=== PATIENT | male | born 1940 | race Caucasian/White ===

== ENCOUNTER → 2023-12-10 | Outpatient (CLI) | payer OTHER | END | disposition home or self-care (01) | LOC: LAB 09:27 | PROVIDERS: ATTEND Internal Medicine | DX: R63.4 Abnormal weight loss (principal) | CPT/HCPCS: 36415; 84443 ==

== ENCOUNTER 2024-04-11 13:40 | Emergency (ER) | payer OTHER ==
[~2024-04-11] VITALS: Ht 157.5 cm; Wt 63.6 kg
[2024-04-11 13:46] VITALS: TEMP 97.9
[2024-04-11 13:55] VITALS: BP 197/76; RESP 17; O2SAT 94
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
--- NOTE | 2024-04-11 15:02 | DVH ---
CLINICAL INDICATION: pain TECHNIQUE: 5 radiographic views of the left ribs were obtained. Comparison: None FINDINGS/IMPRESSION: There is no evidence of acute fracture or dislocation. Dual-chamber pacemaker in place with pulse generator over the left chest. The visualized joint space is well maintained. The alignment is anatomical. There is no radiopaque foreign body. HS:Y
[2024-04-11 15:07] VITALS: PULSE 68
--- NOTE | 2024-04-12 07:12 | ECG ---
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
== END 2024-04-11 15:25 | disposition home or self-care (01) ==
LOC: ER 13:40
DX: S20.212A Contusion of left front wall of thorax, initial encounter (principal); I10 Essential (primary) hypertension; I25.10 Atherosclerotic heart disease of native coronary artery without angina pectoris; Z95.0 Presence of cardiac pacemaker; Z98.890 Other specified postprocedural states; V19.88XA Pedal cyclist (driver) (passenger) injured in other specified transport accidents, initial encounter; Y93.I9 Activity, other involving external motion; Y92.89 Other specified places as the place of occurrence of the external cause; Y99.8 Other external cause status
CPT/HCPCS: 71101; 93005

== ENCOUNTER 2024-09-03 11:41 | Inpatient (IN) | payer OTHER ==
[~2024-09-03] VITALS: Ht 157.5 cm; Wt 58.4 kg
--- NOTE | 2024-09-03 12:09 | ED.PDOC ---
HPI Comments This is a 84 year old male VITALY presents to the ED with chief complaint of syncope. EMS reports that the patient had been opening a gate at home when he was witnessed by neighbors to collapse to the ground, falling onto dirt. Patient relays that he had felt lightheaded prior to his syncopal episode. EMS states patient's BG was 347 on scene and had positive orthostatic vitals. Patient denies any chest pain, SOB, dizziness, headache, N/V, or fever. 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, Medications, Allergies Allergies: Coded Allergies: NO KNOWN ALLERGIES (Unverified , 09/03/24) Information Source: Patient, Emergency Med Personnel Mode of Arrival: EMS Severity: Moderate Timing: Hours Duration: Since onset Prehospital treatment: None Onset: At Rest Cardiac Risk Factors: HTN, Diabetes Associated Signs and Symptoms: Syncope Past Medical History PAST MEDICAL HISTORY: CAD, DM, HTN Surgical History: Hernia Repair, Pacemaker Family History Family History: Reviewed,noncontributory to illness Social History Smoker: Non-Smoker Alcohol: Denies ETOH Use Drugs: Denies Drug Use Lives In: Home Constitutional: denies: chills, diaphoresis, fatigue, fever, malaise, sweats, weakness, others EENTM: denies: blurred vision, double vision, ear bleeding, ear discharge, ear drainage, ear pain, ear ringing, eye pain, eye redness, hearing loss, mouth pain, mouth swelling, nasal discharge, nose bleeding, nose congestion, nose pain, photophobia, tearing, throat pain, throat swelling, voice changes, others Respiratory: denies: cough, hemoptysis, orthopnea, SOB at rest, shortness of breath, SOB with excertion, stridor, wheezing, others Cardiovascular: reports: lightheadedness, syncope; denies: chest pain, dizzy spells, diaphoresis, Dyspnea on exertion, edema, irregular heart beat, left arm pain, palpitations, PND, others Gastrointestinal: denies: abdomen distended, abdominal pain, blood streaked bowels, constipated, diarrhea, dysphagia, difficulty swallowing, hematemesis, melena, nausea, poor appetite, poor fluid intake, rectal bleeding, rectal pain, vomiting, others Genitourinary: denies: burning, dysuria, flank pain, frequency, hematuria, incontinence, penile discharge, penile sore, pain, testicle pain, testicle swelling, urgency, others Neurological: denies: dizziness, fainting, headache, left sided numbness, left sided weakness, numbness, paresthesia, pre-existing deficit, right sided numbness, right sided weakness, seizure, speech problems, tingling, tremors, weakness, others Musculoskeletal: denies: back pain, gout, joint pain, joint swelling, muscle pain, muscle stiffness, neck pain, others Integumetry: denies: bruises, change in color, change in hair/nails, dryness, laceration, lesions, lumps, rash, wounds, others Allergic/Immunocompromised: denies: Difficulty Healing, Frequent Infections, Hives, Itching, others Hematologic/Lymphatic: denies: anemia, blood clots, easy bleeding, easy bruising, swollen glands, others Endocrine: denies: excessive hunger, excessive sweating, excessive thirst, excessive urination, flushing, intolerance to cold, intolerance to heat, unexplained weight gain, unexplained weight loss, others Psychiatric: denies: anxiety, bipolar disorder, depression, hopeless, panic disorder, schizophrenia, sleepless, suicidal, others All Other Systems: Reviewed and Negative Physical Exam General Appearance: No Apparent Distress, Normal HEENT: Normal ENT Inspection, Pharynx Normal, TMs Normal Neck: Full Range of Motion, Non-Tender, Normal, Normal Inspection Respiratory: Chest Non-Tender, Lungs Clear, No Accessory Muscle Use, No Respiratory Distress, Normal Breath Sounds Cardiovascular: No Edema, No JVD, No Murmur, No Gallop, Normal Peripheral Pulses, Tachycardia Breast Exam: Deferred Gastrointestinal: No Organomegaly, Non Tender, No Pulsatile Mass, Normal Bowel Sounds, Soft Genitalia: Deferred Pelvic: Deferred Rectal: Deferred Extremities: No calf tenderness, Normal capillary refill, Normal inspection, Normal range of motion, Non-tender, No pedal edema Musculoskeletal : Apperance: Normal 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 Was a procedure done?: No CP Differential Dx Differential Diagnosis: Hypoxia, NH, PAC's Differential Diagnosis: CHF, HTN Essential, HTN Accelerated, Medical NonCompliance Differential Diagnosis: Gastritis, Myocardial Infarction, Pericarditis, Pneumonia X-Ray, Labs, Meds, VS Vital Signs Date Time Temp Pulse Resp B/P (MAP) Pulse Ox O2 Delivery O2 Flow Rate FiO2 09/03/24 14:00 48 16 110/40 (63) 95 09/03/24 12:50 71 16 93 Room Air* 0 21 09/03/24 12:00 98.0 75 16 127/43 (71) 92 98.0 09/03/24 11:54 99.0 75 20 111/60 (77) 98 99.0 09/03/24 11:46 79 Lab Test 09/03/24 13:28 09/03/24 12:17 Range/Units Troponin I High Sensitivity 3 L 3 L </=54 ng/L White Blood Count 6.7 4.4-10.8 10^3/uL Red Blood Count 4.12 L 4.5-5.90 10^6/uL Hemoglobin 13.9 13.5-17.5 g/dL Hematocrit 40.9 L 41.0-53.0 % Mean Corpuscular Volume 99.2 80.0-100.0 fL Mean Corpuscular Hemoglobin 33.8 H 28.0-32.0 pg Mean Corpuscular Hemoglobin Concent 34.1 32.0-36.0 g/dL Red Cell Distribution Width 13.3 11.8-14.3 % Platelet Count 146 140-450 10^3/uL Mean Platelet Volume 8.9 6.9-10.8 fL Neutrophils (%) (Auto) 68.3 37.0-80.0 % Lymphocytes (%) (Auto) 21.0 10.0-50.0 % Monocytes (%) (Auto) 7.3 0.0-12.0 % Eosinophils (%) (Auto) 2.8 0.0-7.0 % Basophils (%) (Auto) 0.6 0.0-2.0 % Neutrophils # (Auto) 4.6 1.6-8.6 10 ^3/uL Lymphocytes # (Auto) 1.4 0.4-5.4 10 ^3/uL Monocytes # (Auto) 0.5 0-1.3 10 ^3/uL Eosinophils # (Auto) 0.2 0-0.8 10 ^3/uL Basophils # (Auto) 0 0-0.2 10 ^3/uL Nucleated Red Blood Cells 0.0 % Sodium Level 139 136-145 mmol/L Potassium Level 5.3 H 3.5-5.1 mmol/L Chloride Level 105 98-107 mmol/L Carbon Dioxide Level 25 20-31 mmol/L Anion Gap 9 5-15 Blood Urea Nitrogen 22 9-23 mg/dL Creatinine 1.51 H 0.700-1.30 mg/dL Glomerular Filtration Rate Calc 45 >90 mL/min BUN/Creatinine Ratio 14.6 10.0-20.0 Serum Glucose 352 H 74-106 mg/dL Calcium Level 10.0 8.7-10.4 mg/dL B-Type Natriuretic Peptide 110.46 0-100 pg/mL [place] [address] Ph: [phone] DIAGNOSTIC IMAGING Diagnostic Imaging Report : [id number] Signed PATIENT: KANU MARTINEZ ACCT: [id number] UNIT: [id number] : 1940 LOC: ER ROOM / BED: / AGE / SEX: 84 / M ADM STATUS: REG ER SERVICE 1146 ORDERING PHYSICIAN: NII VANG MD PROCEDURE(s): HWOCT - HEAD WITHOUT CONTRAST REASON: syncope ORDER NUMBER(s): [id number], ACCESSION NUMBER(s): [id number] CT HEAD WITHOUT CONTRAST Indication: syncope EXAM DATE: 09/03/2024 12:01 PM COMPARISON: None TECHNIQUE: CT of the head without intravenous contrast. RADIATION DOSE: CTDIvol: 62.36 mGy, DLP: 979.11 mGy*cm FINDINGS: There is no intracranial hemorrhage. There is no extra-axial fluid, mass, mass effect or midline shift. The ventricles are midline and normal in size. Basilar cisterns are patent. Zvjc-rt-nkrrszhd periventricular and subcortical white matter chronic microvascular ischemic changes. Mild global cerebral volume loss. 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 Ethmoid, sphenoid sinus disease. Sclerosis of the mastoids. Imaged portion of the orbits are unremarkable. IMPRESSION: 1. No intracranial hemorrhage or mass effect. 2. Zcys-os-nlfpcskq chronic microvascular ischemic changes. 3. 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 4. Paranasal sinus disease ATED BY: CHRISTIANO TRACEY MD DICTATED DATE/TIME: 09/03/24 1232 SIGNED BY: CHRISTIANO TRACEY MD SIGNED DATE/TIME: 09/03/24 123 CC: [place] [address] Ph: [phone] DIAGNOSTIC IMAGING Diagnostic Imaging Report : [id number] Signed PATIENT: KANU MARTINEZ ACCT: [id number] UNIT: [id number] : 1940 LOC: ER ROOM / BED: / AGE / SEX: 84 / M ADM STATUS: REG ER SERVICE 1146 ORDERING PHYSICIAN: NII VANG MD PROCEDURE(s): CXRP - CHEST PORTABLE REASON: syncope ORDER NUMBER(s): [id number], ACCESSION NUMBER(s): [id number] CHEST RADIOGRAPH Indication: syncope Technique: Single frontal view of the chest was obtained COMPARISON: None FINDINGS: Left chest dual lead cardiac pacer device. The cardiac silhouette is enlarged. The lungs demonstrate bilateral patchy airspace opacities. The pulmonary vasculature is prominent. Interstitial airspace opacities which could represent sequela of pulmonary edema, atypical infection, chronic lung changes/disease. Small left pleural effusion.. There is no pneumothorax. Aortic atherosclerotic disease. IMPRESSION: 1. As above ATED BY: CHRISTIANO TRACEY MD DICTATED DATE/TIME: 09/03/24 1233 SIGNED BY: CHRISTIANO TRACEY MD SIGNED DATE/TIME: 09/03/24 1233 CC: Time of 1ST Reevaluation: 13:05 Reevaluation 1ST: Unchanged Patient Education/Counseling: Diagnosis, Treatment Family Education/Counseling: No Family Present Additional Information Previous visits reviewed: 04/11/24 for rib contusion The following tests were ordered, and results were reviewed by me: CBC, BMP, Troponin, UA, EKG, Chest XR, BNP, Head CT Additional Information was gathered from interviewing the following independent historians: EMS I reviewed and agreed with the following test results read by other providers: Chest XR, Head CT I discussed treatment and results with medical personnel and: patient Comprehensive systems review obtained and negative except for what is stated in the HPI. Departure 1 Departure Time of Disposition: 14:17 (Patient presented with syncope today and should be admitted. Data: 1. I ordered and reviewed the result of at least 3 labs including a CBC, BMP, and troponin. 2. I independently interpreted the following tests: EKG which shows a sinus arrhythmia and a chest x-ray which shows pulmonary vascular congestion and a CT head which shows benign brain.Risk:This patient has a high risk of morbidity due to further diagnostic testing or treatment and may suffer from an acute cardiac, neurologic, or infectious disorder. Rationale: Patient should be admitted to the hospital for further management.) Impression: Primary Impression: Syncope and collapse Disposition: ADMITTED INPATIENT Admit to: Med Surg Condition: Guarded Critical Care Note Critical Care Time?: Yes Critical care comment: Syncope Authorized and Performed by: Nii Vang MD Total critical care time: Approximately 38 minutes Due to a high probability of clinically significant, life threatening deterioration, the patient required my highest level of preparedness to intervene emergently and I personally spent this critical care time directly and personally managing the patient. This critical care time included obtaining a history; examining the patient; pulse oximetry; ordering and review of studies; arranging urgent treatment with development of a management plan; evaluation of patient's response to treatment; frequent reassessment; and, discussions with other providers. This critical care time was performed to assess and manage the high probability of imminent, life-threatening deterioration that could result in multi-organ failure. It was exclusive of separately billable procedures and treating other patients and teaching time. Please see my other sections and the rest of the note for further information on patient assessment and treatment. Stability Stability form required: No Heart Score Heart Score: Heart Score Response (Comments) Value History Highly Suspicious 2 EKG Repolarization Disturb 1 Age >65 2 Risk Factors >3 or Hx ASHD 2 Troponin Normal limit 0 Total 7 I personally scribed for NII VANG MD ([email or web address]) on 09/03/24 at 12:08. Electronically submitted by Lion Brar ([email or web address]). I personally scribed for NII VANG MD ([email or web address]) on 09/03/24 at 12:52. Electronically submitted by Lion Brar ([email or web address]). NII VANG MD Sep 03, 2024 12:08
--- NOTE | 2024-09-03 12:34 | DVH ---
CT HEAD WITHOUT CONTRAST Indication: syncope EXAM DATE: 09/03/2024 12:01 PM COMPARISON: None TECHNIQUE: CT of the head without intravenous contrast. RADIATION DOSE: CTDIvol: 62.36 mGy, DLP: 979.11 mGy*cm FINDINGS: There is no intracranial hemorrhage. There is no extra-axial fluid, mass, mass effect or midline shif t. The ventricles are midline and normal in size. Basilar cisterns are patent. Gzza-vi-ngrwmxvc periv entricular and subcortical white matter chronic microvascular ischemic changes. Mild global cerebral volume loss. 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 Ethmoid, sphenoid sinus disease. Sclerosis of the mastoids. Imaged portion of the orbits are unremar kable. IMPRESSION: 1. No intracranial hemorrhage or mass effect. 2. Hkbv-dz-avecjrcm chronic microvascular ischemic changes. 3. 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 4. Paranasal sinus disease
--- NOTE | 2024-09-03 12:35 | DVH ---
CHEST RADIOGRAPH Indication: syncope Technique: Single frontal view of the chest was obtained COMPARISON: None FINDINGS: Left chest dual lead cardiac pacer device. The cardiac silhouette is enlarged. The lungs demonstrate bilateral patchy airspace opacities. The pu lmonary vasculature is prominent. Interstitial airspace opacities which could represent sequela of pu lmonary edema, atypical infection, chronic lung changes/disease. Small left pleural effusion.. There is no pneumothorax. Aortic atherosclerotic disease. IMPRESSION: 1. As above
[2024-09-03 12:50] VITALS: PULSE 71; RESP 16; O2SAT 93
[2024-09-03 12:52] LABS: Basophils # (auto) 0 10 ^3/uL (0-0.2); Basophils % (auto) 0.6 % (0.0-2.0); Eosinophils # (auto) 0.2 10 ^3/uL (0-0.8); Eosinophils % (auto) 2.8 % (0.0-7.0); Hematocrit 40.9 % (41.0-53.0); Hemoglobin 13.9 g/dL (13.5-17.5); Lymphocytes # (auto) 1.4 10 ^3/uL (0.4-5.4); Mean Corpuscular Hemoglobin 33.8 pg (28.0-32.0); Mean Corpuscular Hgb Conc. 34.1 g/dL (32.0-36.0); Mean Corpuscular Volume 99.2 fL (80.0-100.0); Monocytes # (auto) 0.5 10 ^3/uL (0-1.3); Monocytes % (auto) 7.3 % (0.0-12.0); Neutrophils # (auto) 4.6 10 ^3/uL (1.6-8.6); Neutrophils % (auto) 68.3 % (37.0-80.0); Platelet Count (auto) 146 10^3/uL (140-450); Red Blood Cells 4.12 10^6/uL (4.5-5.90); Red Cell Distribution Width 13.3 % (11.8-14.3); White Blood Cell 6.7 10^3/uL (4.4-10.8)
[2024-09-03 13:07] LABS: Chloride 105 mmol/L (98-107); Sodium 139 mmol/L (136-145)
[2024-09-03 13:08] LABS: Anion Gap 9 (5-15); Carbon Dioxide 25 mmol/L (20-31)
[2024-09-03 13:11] LABS: Potassium 5.3 mmol/L (3.5-5.1)
[2024-09-03 13:14] LABS: BUN/Creatinine Ratio 14.6 (10.0-20.0); Blood Urea Nitrogen 22 mg/dL (9-23); Glucose 352 mg/dL (74-106)
[2024-09-03] MEDS ORDERED: ALBUTEROL SULF 2.5 MG/0.5ML(0.5%) NEB SOLN NEB PRN (15:00)
[2024-09-03] MEDS ORDERED: guaiFENesin 200 MG/10 ML UD PO PRN (15:00)
[2024-09-03] MEDS ORDERED: MORPHINE SULFATE INJ 2 MG/ml SYRG IV PRN (15:00)
[2024-09-03] MEDS ORDERED: NITROGLYCERIN 0.4 MG SL TAB SL PRN (15:00)
[2024-09-03] MEDS ORDERED: DEXTROSE (50%) 50ML SYRG IV PRN (15:00)
--- NOTE | 2024-09-03 15:00 | DVHHPRES ---
History of Present Illness Resident Creating Document: SHALONDA VALDES RESIDENT History of Present Illness Patient is 84-year-old male with past medical history of hypertension, diabetes mellitus type 2, benign prostate hyperplasia, dyslipidemia, presence of pacemaker who brought to the hospital with chief complaint of syncopal episode. As per patient he lose sudden consciousness, did not have any pre or post consciousness confusion, no prodromal symptoms, he usually has dizziness while sudden standing up. As per patient one of grandchildren was sick, few weeks ago he started having cough, which is not resolving. Mainly cough is nonproductive not associated fever, chills, shortness of breath, chest pain. Patient never had similar kind of symptoms where he passed out, mainly usually has lightheadedness. Apart from them patient denying any other symptoms, regular bowel and bladder. Past medical history: Hypertension, diabetes mellitus type 2, BPH, dy slipidemia, h Surgical history: Presence of pacemaker Allergy : None Personal history: Nonsmoker, no recreational drug use Family history: Unremarkable Home medication: Metformin 500 mg b.i.d., lisinopril 5 mg once daily, metoprolol 50 mg once daily, glimepiride1 mg p.o. daily, pioglitazone 30 mg p.o. daily, levothyroxine 50 mcg once daily, Januvia 100 mg once, ezetimibe 10 mg p.o. daily Review of Systems Constitutional: No: Fever, Chills, Sweats, Weakness, Malaise, Other Eyes: No: Pain, Vision change, Conjunctivae inflammation, Eyelid inflammation, Other, Redness ENT: No: Ear pain, Ear discharge, Nose pain, Nose discharge, Nose congestion, Mouth pain, Mouth swelling, Throat pain, Throat swelling, Other Respiratory: No: Cough, Dry, Shortness of breath, SOB with excertion, Wheezing, Hemoptysis, Pleuritic Pain, Sputum, Wheezing, Other Cardiovascular: No: Chest Pain, Palpitations, Orthopnea, Paroxysmal Noc. Dyspnea, Edema, Lt Headedness, Other Gastrointestinal: No: Nausea, Vomiting, Abdominal Pain, Diarrhea, Constipation, Melena, Hematochezia, Other Genitourinary: No Dysuria, No Frequency, No Incontinence, No Hematuria, No Retention, No Other Musculoskeletal: No: other, neck pain, shoulder pain, arm pain, back pain, hand pain, leg pain, foot pain Skin: No: Rash, Lesions, Jaundice, Bruising, Other Neurological: Other (Dizziness, syncopal episode) Allergies: Coded Allergies: NO KNOWN ALLERGIES (Unverified , 09/03/24) Medications Current Medications Medications Dose Ordered Sig/Es Route Start Time Stop Time Status Last Admin Dose Admin Nitroglycerin 0.4 mg Q5MINP PRN SL 09/03/24 15:00 UNV Morphine Sulfate 2 mg Q30M PRN IV 09/03/24 15:00 UNV Ceftriaxone Sodium 50 ml @ 100 mls/hr DAILY@09 IV 09/04/24 09:00 UNV Azithromycin 500 mg DAILY PO 09/04/24 10:00 UNV Guaifenesin 200 mg Q4HP PRN PO 09/03/24 15:00 UNV Albuterol 2.5 mg Q6HPRN PRN NEB 09/03/24 15:00 UNV Exam Vital Signs Vital Signs Date Time Temp Pulse Resp B/P (MAP) Pulse Ox O2 Delivery O2 Flow Rate FiO2 09/03/24 14:00 48 16 110/40 (63) 95 09/03/24 12:50 Room Air* 0 21 09/03/24 12:00 98.0 98.0 Exam General Appearance: Cooperative. Well developed. Well nourished. NAD Head Exam: Normal inspection Neck Exam: Normal inspection. Non-tender. Normal alignment Pulmonary/Respiratory: Chest non-tender. Clear bilateral breath sounds Cardiovascular/Chest: Regular rate and rhythm. No murmurs. No JVD. Peripheral Pulses: 2+ Radial (R). 2+ Radial (L). 2+ Pedal (R). 2+ Pedal (L) Abdominal Exam: Normal bowel sounds. Soft. Nontender. No hepatospenomegaly. No masses Ankle Exam: Negative ankle edema Lower extremities: Negative lower extremity edema Neuro/Mental Status: A&O x4. Coherent Thoughts/Psych: Normal thought pattern. Appropriate mood and affect. Good judgement and insight Appearance: In no acute distress Skin Exam: Normal inspection. Normal color. Warm. Dry Labs/Xrays Labs Test 09/03/24 13:28 09/03/24 12:17 Range/Units Troponin I High Sensitivity 3 L </=54 ng/L White Blood Count 6.7 4.4-10.8 10^3/uL Red Blood Count 4.12 L 4.5-5.90 10^6/uL Hemoglobin 13.9 13.5-17.5 g/dL Hematocrit 40.9 L 41.0-53.0 % Mean Corpuscular Volume 99.2 80.0-100.0 fL Mean Corpuscular Hemoglobin 33.8 H 28.0-32.0 pg Mean Corpuscular Hemoglobin Concent 34.1 32.0-36.0 g/dL Red Cell Distribution Width 13.3 11.8-14.3 % Platelet Count 146 140-450 10^3/uL Mean Platelet Volume 8.9 6.9-10.8 fL Neutrophils (%) (Auto) 68.3 37.0-80.0 % Lymphocytes (%) (Auto) 21.0 10.0-50.0 % Monocytes (%) (Auto) 7.3 0.0-12.0 % Eosinophils (%) (Auto) 2.8 0.0-7.0 % Basophils (%) (Auto) 0.6 0.0-2.0 % Neutrophils # (Auto) 4.6 1.6-8.6 10 ^3/uL Lymphocytes # (Auto) 1.4 0.4-5.4 10 ^3/uL Monocytes # (Auto) 0.5 0-1.3 10 ^3/uL Eosinophils # (Auto) 0.2 0-0.8 10 ^3/uL Basophils # (Auto) 0 0-0.2 10 ^3/uL Nucleated Red Blood Cells 0.0 % Sodium Level 139 136-145 mmol/L Potassium Level 5.3 H 3.5-5.1 mmol/L Chloride Level 105 98-107 mmol/L Carbon Dioxide Level 25 20-31 mmol/L Anion Gap 9 5-15 Blood Urea Nitrogen 22 9-23 mg/dL Creatinine 1.51 H 0.700-1.30 mg/dL Glomerular Filtration Rate Calc 45 >90 mL/min BUN/Creatinine Ratio 14.6 10.0-20.0 Serum Glucose 352 H 74-106 mg/dL Calcium Level 10.0 8.7-10.4 mg/dL B-Type Natriuretic Peptide 110.46 0-100 pg/mL Assessment/Plan Assessment/Plan Syncope ? Cardiogenic syncope, orthostatic hypotension, thyroid dysfunction, carotid artery stenosis Acute CHF diastolic versus systolic Small pleural effusion Pneumonia Gram-positive versus Gram-negative ? Post viral KIANA due to VMN, CKD, baseline CKD unknown Hypertension Hypothyroidism Presence of pacemaker Diabetes mellitus type 2 with hyperglycemia Dyslipidemia Plan/ recommendation: Head CT: No intracranial hemorrhage or mass effect. [id number] chronic microvascular ischemic changes. Chronic mastoiditis. Paranasal sinus disease Chest x-ray: Bilateral patchy airspace opacity. Pulmonary edema. Small pleural effusion IV antibiotic with ceftriaxone azithromycin Cardiology consultation Pending echocardiogram, TSH, respiratory culture IV Lasix 20 mg once daily, sodium zirconium for hyperkalemia Albuterol 2.5 mg q.6 p.r.n. Moderate insulin sliding scale For hypothyroidism resume levothyroxine, follow with TSH Pending urine studies including urine sodium, urine protein creatinine ratio, urinalysis Follow up with BMP and magnesium level in tomorrow a.m.. PUD prophylaxis with Protonix DVT prophylaxis with Lovenox Goals of care discussed greater than 22 minutes, DNR. Can done intubation. Plan discussed with Dr. Sidhu Plan discussed with: Patient, Other (RN) My Orders Orders - SHALONDA VALDES RESIDENT Procedure Category Date Status Time Admit ADMIT 09/03/24 Transmitted 14:51 Nitroglycerin PHA 09/03/24 Logged Sublingual (Ntrostat 15:00 Morphine Sulfate PHA 09/03/24 Logged Injection 15:00 Oxygen By Nasal RT 09/03/24 Transmitted Cannula 14:51 Stat Ekg For Chest ROBERTA 09/03/24 In Process Pain 14:51 Notify Md Of Changes ROBERTA 09/03/24 In Process From Base 14:51 Pest Control Specialist For ROBERTA 09/03/24 In Process 24 Hours 14:51 Emergency Dysrhythmia ROBERTA 09/03/24 In Process Protocol 14:51 Rhythm Strips Once [facility] 09/03/24 In Process Every Shift 14:51 Ceftriaxone 1gm/50ml PHA 09/04/24 Logged D5w (Rocephin) 09:00 Ceftriaxone 1gm/50ml PHA 09/03/24 Logged D5w (Rocephin) 15:00 Azithromycin Tablet PHA 09/03/24 Logged (Zithromax Tablet) 15:00 Azithromycin Tablet PHA 09/04/24 Logged (Zithromax Tablet) 10:00 Carotid Duplx W Color US 09/03/24 Logged DOP 14:51 Thyroid Stimulating LAB 09/03/24 In Process Hormone 14:51 * Cardiology Consult CONS 09/03/24 Transmitted 14:51 Echo 2d Mode Cardiac US 09/03/24 Logged DOP 14:51 Respiratory Culture ANNE 09/03/24 Logged W/ Gs 14:51 Guaifenesin Plain PHA 09/03/24 Logged Liquid (Robitussin [place] 15:00 Albuterol Medneb PHA 09/03/24 Logged (Ventolin Medneb) 15:00 Sodium Zirconium PHA 09/03/24 Transmitted Cyclosilicate 15:00 Furosemide Injection PHA 09/03/24 Transmitted (Lasix Injection) 15:00 Furosemide Injection PHA 09/04/24 Transmitted (Lasix Injection) 10:00 Glucose Blood PHA 09/03/24 Transmitted (Accu-Chek Comfort 16:00 Moderate Insulin Ss PHA 09/03/24 Transmitted 16:00 Dextrose 50% Syringe PHA 09/03/24 Transmitted 15:00 Levothyroxine Tablet PHA 09/03/24 Transmitted (Synthroid Tablet) 15:00 Levothyroxine Tablet PHA 09/04/24 Transmitted (Synthroid Tablet) 06:00 Urine Creatinine LAB 09/03/24 Transmitted 14:59 Urine Sodium LAB 09/03/24 Transmitted 14:59 Urine LAB 09/03/24 Transmitted Protein/Creatinine Urinalysis LAB 09/03/24 Transmitted 14:59 SHALONDA VALDES RESIDENT Sep 03, 2024 15:00
[2024-09-03 15:21] VITALS: BP 110/40; PULSE 69; RESP 18; TEMP 98; O2SAT 93
--- NOTE | 2024-09-03 15:59 | DVH ---
Carotid Duplex Date: 09/03/2024 03:19 PM Clinical History: syncope Comparison: None Technique: Duplex Doppler evaluation of the extracranial carotid and vertebral arteries including col or Doppler and spectral/pulsed waveform analysis was performed. Findings: RIGHT SIDE: The peak systolic velocities are 53 cm/s in the distal CCA and 74 cm/s in the proximal ICA.The ICA/CC A ratio is less than 2. The external carotid artery is patent with peak systolic velocity of 95 cm/s proximally. There is appropriate antegrade flow in the right vertebral artery. LEFT SIDE: The peak systolic velocities are 76 cm/s in the distal CCA and 68 cm/s in the proximal ICA.. The ICA/ CCA ratio is less than 1. The external carotid artery is patent with peak systolic velocity of 100 cm/s proximally. There is appropriate antegrade flow in the left vertebral artery. IMPRESSION: 1. No hemodynamically significant stenosis noted in the right carotid system. 2. No hemodynamically significant stenosis noted in the left carotid system. 3. Reference: Radiology 2003; 229:[id number]
[2024-09-03] MEDS: InsuLIN REG 1unit/0.01ml Soln (100units/ml) SC SCH (16:00)
[2024-09-03] MEDS: ACCU-CHEK COMFORT CURVE STRIP VI SCH (16:00)
[2024-09-03] MEDS: AZITHROMYCIN 250 MG TAB PO ONE (16:40)
[2024-09-03] MEDS: FUROSEMIDE 20 MG/2 ML VIAL IV ONE (16:40)
[2024-09-03] MEDS: LEVOTHYROXINE SODIUM 50 MCG TAB PO ONE (16:40)
[2024-09-03] MEDS: SODIUM ZIRCONIUM CYCL 10 GM PAK PO ONE (16:41)
[2024-09-03] MEDS: cefTRIAXone 1GM/50ML D5W 50 ML IV ONE (16:41)
[2024-09-03 16:55] LABS: Urine Bacteria None Seen /hpf (None Seen)
--- NOTE | 2024-09-03 17:05 | DVHINCON2 ---
Date Seen: Sep 03, 2024 Referring Physician MD Yelitza resident Reason for Consultation Pacemaker check, syncope History of Present Illness This is an 84-year-old male patient who presents to the emergency room with chief complaint of syncopal episode. The patient reports that earlier today he was outside opening a gate when suddenly he began to feel dizzy and sustained a syncopal episode. He states that he hit his head and lost consciousness. He does report dizziness for the last two weeks. Initial twelve lead electrocardiogram reveals paced rhythm. Serial troponin levels have been negative. The patient denies any cardiac symptoms at time of assessment. Sign ificant past medical history includes presence of permanent pacemaker (Biotronik), hypertension, dyslipidemia, type 2 diabetes mellitus, thyroid disease, and benign prostatic hyperplasia. The patient reports his primary dentist private practice is in [place] since he lives half of the year in [place] and the other half of the year in [place]. Past Medical History Past medical history reviewed. No other significant than mentioned above. Past Surgical History Hernia repair Permanent pacemaker insertion in 1999 Family History Family history reviewed. Social History Denies the use of tobacco, alcohol or illicit drugs. Allergies: Coded Allergies: NO KNOWN ALLERGIES (Unverified , 09/03/24) Home Meds Home medications reviewed. Current Medications Current Medications Medications (Trade) Dose Ordered Sig/Es Route PRN Reason Start Time Stop Time Status Last Admin Nitroglycerin (Ntrostat Sublingual) 0.4 mg Q5MINP PRN SL FOR CHEST PAIN 09/03/24 15:00 Morphine Sulfate 2 mg Q30M PRN IV FOR CHEST PAIN 09/03/24 15:00 Ceftriaxone Sodium 50 ml @ 100 mls/hr DAILY@09 IV 09/04/24 09:00 Azithromycin (Zithromax Tablet) 500 mg DAILY PO 09/04/24 10:00 Guaifenesin (Robitussin Plain Liquid) 200 mg Q4HP PRN PO FOR COUGH 09/03/24 15:00 Albuterol (Ventolin Medneb) 2.5 mg Q6HPRN PRN NEB SHORTNESS OF BREATH 09/03/24 15:00 Furosemide (Lasix Injection) 20 mg DAILY IV 09/04/24 10:00 Diagnostic Test (Pha) (Accu-Chek Comfort Curve T) 1 strip IQ4HR 09/03/24 16:00 09/03/24 16:00 Insulin Human Regular (InsuLIN R) IQ4HR SC 09/03/24 16:00 09/03/24 16:00 Dextrose 50 ml UD PRN IV Blood Sugar LESS THAN 60 09/03/24 15:00 Levothyroxine Sodium (Synthroid Tablet) 50 mcg QAM@0600 PO 09/04/24 06:00 Review of Systems Constitutional: No symptom reported Ears, Nose, & Throat: No symptom reported Eyes: No symptom reported Neurological: Syncope Pulmonary/Respiratory: No symptoms reported Cardiovascular: No symptom reported Gastrointestinal: No symptom reported Genitourinary: No symptom reported Musculoskeletal: No symptom reported Skin: No symptom reported Psychiatric: No symptom reported Endocrine: No symptom reported Hematologic/Lymphatic: No symptom reported Vital Signs Vital Signs Date Time Temp Pulse Resp B/P (MAP) Pulse Ox O2 Delivery O2 Flow Rate FiO2 09/03/24 16:40 156/76 09/03/24 16:00 98.3 71 16 98 98.3 09/03/24 15:21 0.0 09/03/24 15:21 Room Air* 21 Physical Exam General Appearance: Cooperative. Well-developed. Well-nourished. No acute distress. Pulmonary/Respiratory: Clear, bilateral breaths sounds. Cardiovascular/Chest: Regular rate and rhythm. Peripheral Pulses: 2+ Radial (R). 2+ Radial (L). 2+ Pedal (R). 2+ Pedal (L) Abdominal Exam: Normal bowel sounds. Ankle Exam: Negative ankle edema Lower extremities: Negative lower extremity edema Neuro/Mental Status: A/OX4, coherent. Thoughts/Psych: Normal thought pattern. Appropriate mood and affect. Good judgment and insight. Appearance: No acute distress. Skin Exam: Normal inspection. Normal color. Warm and dry. Labs/Diagnostic Data Labs Test 09/03/24 16:33 09/03/24 16:30 09/03/24 15:47 09/03/24 13:28 Range/Units POC Glucose 286 H 70-106 mg/dl Troponin I High Sensitivity < 3 L </=54 ng/L Thyroid Stimulating Hormone (TSH) 2.11 0.55-4.78 uIU/mL Test 09/03/24 12:17 Range/Units White Blood Count 6.7 4.4-10.8 10^3/uL Red Blood Count 4.12 L 4.5-5.90 10^6/uL Hemoglobin 13.9 13.5-17.5 g/dL Hematocrit 40.9 L 41.0-53.0 % Mean Corpuscular Volume 99.2 80.0-100.0 fL Mean Corpuscular Hemoglobin 33.8 H 28.0-32.0 pg Mean Corpuscular Hemoglobin Concent 34.1 32.0-36.0 g/dL Red Cell Distribution Width 13.3 11.8-14.3 % Platelet Count 146 140-450 10^3/uL Mean Platelet Volume 8.9 6.9-10.8 fL Neutrophils (%) (Auto) 68.3 37.0-80.0 % Lymphocytes (%) (Auto) 21.0 10.0-50.0 % Monocytes (%) (Auto) 7.3 0.0-12.0 % Eosinophils (%) (Auto) 2.8 0.0-7.0 % Basophils (%) (Auto) 0.6 0.0-2.0 % Neutrophils # (Auto) 4.6 1.6-8.6 10 ^3/uL Lymphocytes # (Auto) 1.4 0.4-5.4 10 ^3/uL Monocytes # (Auto) 0.5 0-1.3 10 ^3/uL Eosinophils # (Auto) 0.2 0-0.8 10 ^3/uL Basophils # (Auto) 0 0-0.2 10 ^3/uL Nucleated Red Blood Cells 0.0 % Sodium Level 139 136-145 mmol/L Potassium Level 5.3 H 3.5-5.1 mmol/L Chloride Level 105 98-107 mmol/L Carbon Dioxide Level 25 20-31 mmol/L Anion Gap 9 5-15 Blood Urea Nitrogen 22 9-23 mg/dL Creatinine 1.51 H 0.700-1.30 mg/dL Glomerular Filtration Rate Calc 45 >90 mL/min BUN/Creatinine Ratio 14.6 10.0-20.0 Serum Glucose 352 H 74-106 mg/dL Calcium Level 10.0 8.7-10.4 mg/dL B-Type Natriuretic Peptide 110.46 0-100 pg/mL Assessment Syncope, rule out cardiac etiology Rule out structural heart disease Presence of permanent pacemaker (Biotronik) Hypertension Dyslipidemia Type 2 diabetes mellitus, uncontrolled (Hgb A1c 8.8%) BPH Thyroid disease Plan/Recommendation We will continue with the following plan/recommendations (Dr. Leo): * Transthoracic echocardiogram to evaluate cardiac function * Bilateral carotid ultrasound * Orthostatic vital signs * Pacemaker interrogation * Close Cardiac surveillance Thank you for allowing us to care for this patient. Please call with any questions or concerns. Critical care time spent: 44 minutes This medical document was created using an electronic medical record system with voice recognition software and computerized dictation system. Although this document has been carefully reviewed, there might still be some phonetic and typographical errors. Occasional wrong-word or ``sound-alike substitutions may have occurred due to the inherent limitations of voice recognition software. These areas are purely typographical due to imperfections of the software programs and do not reflect any compromise in the patient's medical care. Please read the chart carefully and recognize, using context, where these substitutions have occurred. Plan discussed with: Patient NYHA Physical activity limitations: NA Date of Service: Sep 03, 2024 Billing Provider: GENA REDDY Cardiology Common Codes: [id number] INP/OBS CARE (High) Cardiology Consultation Codes: [id number] CONSULT <45MIN GENA REDDY Sep 03, 2024 17:05
[2024-09-03 17:08] LABS: Sodium Urine 85 mmol/L (40-220)
[2024-09-03 17:12] LABS: Protein, Urine < 6.0 mg/dL (1-14)
[2024-09-03 17:14] LABS: Urine Blood Negative /uL (Negative); Urine Clarity Clear (Clear); Urine Color Light-Yellow (Yellow); Urine Protein, UAD Negative (Negative); Urine Specific Gravity 1.016 (1.001-1.035); Urine Squamous Epithelial Cell FEW /hpf (<5); Urine Urobilinogen Normal (Negative); Urine WBC 1 /HPF (0-3); Urine pH 6.5 (5.0-9.0)
[2024-09-03 17:15] LABS: Creatinine, Urine 51.66 mg/dL (30.0-125.0); Urine Protein/Creatinine Ratio 0.12
[2024-09-03 18:50] VITALS: PULSE 77; RESP 14; O2SAT 93
[2024-09-03 19:33] LABS: LDL Cholesterol 78 mg/dL (< 100)
[2024-09-03 19:34] LABS: Cholesterol 149 mg/dL (< 200)
[2024-09-03 19:37] LABS: HDL Cholesterol 40 mg/dL (40-59); Triglycerides 283 mg/dL (< 150)
[2024-09-03 19:47] LABS: COVID19 ANTIGEN SOFIA FIA NEGATIVE (NEGATIVE); Rapid Influenza A Negative (Negative); Rapid Influenza B Negative (Negative)
[2024-09-03 21:05] VITALS: BP 120/60; PULSE 70; RESP 17; TEMP 97.5; O2SAT 95
[2024-09-03 21:23] VITALS: BP 120/60; PULSE 70; RESP 18; TEMP 97.5; O2SAT 95
[2024-09-04] VITALS (8 sets, daily range): BP systolic 102–135; BP diastolic 53–81; PULSE 70–79; RESP 15–19; TEMP 96.5–98.1; O2SAT 93–100
[2024-09-04] MEDS: LEVOTHYROXINE SODIUM 50 MCG TAB PO SCH (05:48)
[2024-09-04 06:36] LABS: Basophils # (auto) 0.1 10 ^3/uL (0-0.2); Basophils % (auto) 0.6 % (0.0-2.0); Eosinophils # (auto) 0.2 10 ^3/uL (0-0.8); Eosinophils % (auto) 2.7 % (0.0-7.0); Hematocrit 39.5 % (41.0-53.0); Hemoglobin 13.5 g/dL (13.5-17.5); Lymphocytes # (auto) 2.2 10 ^3/uL (0.4-5.4); Lymphocytes % (auto) 27.2 % (10.0-50.0); Mean Corpuscular Hemoglobin 33.7 pg (28.0-32.0); Mean Corpuscular Hgb Conc. 34.3 g/dL (32.0-36.0); Mean Corpuscular Volume 98.3 fL (80.0-100.0); Monocytes # (auto) 0.7 10 ^3/uL (0-1.3); Monocytes % (auto) 8.5 % (0.0-12.0); Nucleated Red Blood Cells % 0.1 %; Platelet Count (auto) 142 10^3/uL (140-450); Red Blood Cells 4.02 10^6/uL (4.5-5.90); Red Cell Distribution Width 13.1 % (11.8-14.3); White Blood Cell 8.1 10^3/uL (4.4-10.8)
[2024-09-04 06:50] LABS: Anion Gap 11 (5-15); Carbon Dioxide 25 mmol/L (20-31); Chloride 104 mmol/L (98-107); Potassium 4.4 mmol/L (3.5-5.1); Sodium 140 mmol/L (136-145)
[2024-09-04 06:51] LABS: Calcium 9.3 mg/dL (8.7-10.4)
[2024-09-04] MEDS ORDERED: METO-158 PO (06:53)
[2024-09-04] MEDS ORDERED: LEVO50TA7 PO (06:53)
[2024-09-04] MEDS ORDERED: METF-370 PO (06:53)
[2024-09-04] MEDS ORDERED: EZET10TA24 PO (06:53)
[2024-09-04] MEDS ORDERED: SITA100T7 PO (06:53)
[2024-09-04] MEDS ORDERED: GLIM-38 PO (06:53)
[2024-09-04] MEDS ORDERED: LISI-275 PO (06:53)
[2024-09-04] MEDS ORDERED: PIO30T PO (06:53)
[2024-09-04 06:56] LABS: Blood Urea Nitrogen 21 mg/dL (9-23)
[2024-09-04 06:57] LABS: Magnesium 1.9 mg/dL (1.6-2.6)
[2024-09-04 07:00] LABS: Glucose 141 mg/dL (74-106)
[2024-09-04] MEDS: cefTRIAXone 1GM/50ML D5W 50 ML IV SCH (09:00)
[2024-09-04] MEDS: FUROSEMIDE 20 MG/2 ML VIAL IV SCH (09:32)
[2024-09-04] MEDS: AZITHROMYCIN 250 MG TAB PO SCH (10:49)
--- NOTE | 2024-09-04 12:48 | DVHPN2 ---
Consult Progress Note Subjective Patient reports: Feels better Review of Systems: NEURO:Normal (Denies dizziness, lightheadedness) Objective vital signs Vital Sign Date Time Temp Pulse Resp B/P (MAP) Pulse Ox O2 Delivery O2 Flow Rate FiO2 09/04/24 09:32 102/53 09/04/24 08:39 98.1 70 15 93 98.1 09/04/24 08:00 Room Air* 0 21 Total Intake and Output 09/03/24 09/03/24 09/04/24 15:00 23:00 07:00 Intake Total 50 ml 850 ml Balance 50 ml 850 ml medications Current Medications Medications Dose Ordered Sig/Es Route Start Time Stop Time Status Last Admin Dose Admin Nitroglycerin 0.4 mg Q5MINP PRN SL 09/03/24 15:00 Morphine Sulfate 2 mg Q30M PRN IV 09/03/24 15:00 Ceftriaxone Sodium 50 ml @ 100 mls/hr DAILY@09 IV 09/04/24 09:00 09/04/24 09:00 100 MLS/HR Azithromycin 500 mg DAILY PO 09/04/24 10:00 09/04/24 10:49 500 MG Guaifenesin 200 mg Q4HP PRN PO 09/03/24 15:00 Albuterol 2.5 mg Q6HPRN PRN NEB 09/03/24 15:00 Cancel Furosemide 20 mg DAILY IV 09/04/24 10:00 Diagnostic Test (Pha) 1 strip IQ4HR 09/03/24 16:00 09/04/24 12:00 1 STRIP Insulin Human Regular IQ4HR SC 09/03/24 16:00 09/04/24 09:40 15 UNITS Dextrose 50 ml UD PRN IV 09/03/24 15:00 Levothyroxine Sodium 50 mcg QAM@0600 PO 09/04/24 06:00 09/04/24 05:48 50 MCG Examination: CVS:Normal (Telemetry reviewed consistent with AV paced rhythm at 72 beats per minute.) laboratory and microbiology Laboratory Tests 09/04/24 05:31 Test 09/04/24 05:31 Range/Units Serum Glucose 141 #H 74-106 mg/dL Problem List/Assessment/Plan Problem List/Assessment/Plan Assessment Syncope, rule out cardiac etiology Rule out structural heart disease Presence of permanent pacemaker (Biotronik) Hypertension Dyslipidemia Type 2 diabetes mellitus, uncontrolled (Hgb A1c 8.8%) BPH Thyroid disease Plan/Recommendation We will continue with the following plan/recommendations (Dr. Leo): * Transthoracic echocardiogram to evaluate cardiac function * Bilateral carotid ultrasound with no hemodynamically significant stenosis noted. * Orthostatic vital signs * Pacemaker interrogation * Close Cardiac surveillance Follow up device interrogation. Echo pending. Continue telemetry monitoring. This medical document was created using an electronic medical record system with voice recognition software and computerized dictation system. Although this document has been carefully reviewed, there might still be some phonetic and typographical errors. Occasional wrong-word or ``sound-alike substitutions may have occurred due to the inherent limitations of voice recognition software. These areas are purely typographical due to imperfections of the software programs and do not reflect any compromise in the patient's medical care. Please read the chart carefully and recognize, using context, where these substitutions have occurred. Thank you for allowing me to participate in the management of this patient. The treatment plan was discussed with and agreed upon by patient/family including requesting consultants and ordering of imaging/procedures. Plan discussed with: Patient Date of Service: Sep 04, 2024 Billing Provider: TATYANA AVELAR Common Visit Codes: [id number] INP/OBS CARE(HIGH) TATYANA AVELAR Sep 04, 2024 12:48
--- NOTE | 2024-09-04 13:33 | DVHPN2 ---
Reviewed: Care Plan, H&P, Labs, Medications, Previous Orders, Radiology Changes from previous H/P or p: No Changes Eyes: No Pain, No Vision change, No Conjunctivae inflammation, No Eyelid inflammation, No Other, No Redness ENT: No Ear pain, No Ear discharge, No Nose pain, No Nose discharge, No Nose congestion, No Mouth pain, No Mouth swelling, No Throat pain, No Throat swelling, No Other Cardiovascular: No Chest Pain, No Palpitations, No Orthopnea, No Paroxysmal Noc. Dyspnea, No Edema, No Lt Headedness, No Other Respiratory: No Cough, No Dry, No Shortness of breath, No SOB with excertion, No Wheezing, No Hemoptysis, No Pleuritic Pain, No Sputum, No Other Gastrointestinal: No Nausea, No Vomiting, No Abdominal Pain, No Diarrhea, No Constipation, No Melena, No Hematochezia, No Other Genitourinary: No Dysuria, No Frequency, No Incontinence, No Hematuria, No Retention, No Other Musculoskeletal: No other, No neck pain, No shoulder pain, No arm pain, No back pain, No hand pain, No leg pain, No foot pain Skin: No Rash, No Lesions, No Jaundice, No Bruising, No Other Objective Vitals Vital Signs Date Time Temp Pulse Resp B/P (MAP) Pulse Ox O2 Delivery O2 Flow Rate FiO2 09/04/24 12:58 98.1 77 17 117/60 (79) 100 98.1 09/04/24 08:00 Room Air* 0 21 Intake/Output Intake and Output 09/04/24 07:00 Intake Total 900 ml Balance 900 ml Intake Oral 850 ml IV Total 50 ml # Voids 6 Medications Current Medications Medications Dose Ordered Sig/Es Route Start Time Stop Time Status Last Admin Dose Admin Nitroglycerin 0.4 mg Q5MINP PRN SL 09/03/24 15:00 Morphine Sulfate 2 mg Q30M PRN IV 09/03/24 15:00 Ceftriaxone Sodium 50 ml @ 100 mls/hr DAILY@09 IV 09/04/24 09:00 09/04/24 09:00 100 MLS/HR Azithromycin 500 mg DAILY PO 09/04/24 10:00 09/04/24 10:49 500 MG Guaifenesin 200 mg Q4HP PRN PO 09/03/24 15:00 Albuterol 2.5 mg Q6HPRN PRN NEB 09/03/24 15:00 Cancel Furosemide 20 mg DAILY IV 09/04/24 10:00 Diagnostic Test (Pha) 1 strip IQ4HR 09/03/24 16:00 09/04/24 12:00 1 STRIP Insulin Human Regular IQ4HR SC 09/03/24 16:00 09/04/24 09:40 15 UNITS Dextrose 50 ml UD PRN IV 09/03/24 15:00 Levothyroxine Sodium 50 mcg QAM@0600 PO 09/04/24 06:00 09/04/24 05:48 50 MCG Laboratory Results Laboratory Tests 09/04/24 05:31 Chemistry Test 09/04/24 05:31 Calcium Level 9.3 mg/dL (8.7-10.4) Magnesium Level 1.9 mg/dL (1.6-2.6) Lipid panel Test 09/03/24 15:47 Cholesterol Level 149 mg/dL (< 200) HDL Cholesterol 40 mg/dL (40-59) Triglycerides Level 283 mg/dL (< 150) H HgA1c, TSH Test 09/03/24 13:28 Thyroid Stimulating Hormone (TSH) 2.11 uIU/mL (0.55-4.78) Urinalysis Test 09/03/24 16:30 Urine Color Light-yellow (Yellow) Urine Clarity Clear (Clear) Urine pH 6.5 (5.0-9.0) Urine Specific [place] 1.016 (1.001-1.035) Urine Protein Negative (Negative) Urine Ketones Negative (Negative) Urine Blood Negative /uL (Negative) Urine Nitrite Negative (Negative) Urine Bilirubin Negative (Negative) Urine Urobilinogen Normal mg/dL (Negative) Urine Leukocyte Esterase Negative /uL (Negative) Urine RBC <1 /hpf (0 - 3) Urine Microscopic WBC 1 /HPF (0-3) Urine Squamous Epithelial Cells Few /hpf (<5) Urine Bacteria None seen /hpf (None Seen) Urine Creatinine 51.66 mg/dL (30.0-125.0) Urine Protein/Creatinine Ratio 0.12 Urine Sodium 85 mmol/L (40-220) Urine Glucose 4+ mg/dL (Normal) H Urine Total Protein < 6.0 mg/dL (1-14) Labs and/or images reviewed: Labs reviewed by me, Image(s) reviewed by me Assessment/Plan Assessment/Plan Syncope, rule out cardiac etiology cardiology consult by Dr. Leo appreciated Rule out structural heart disease Presence of permanent pacemaker (Biotronik), patient is waiting for pacemaker interrogation Hypertension Dyslipidemia Type 2 diabetes mellitus, uncontrolled (Hgb A1c 8.8%) BPH Thyroid disease at the bedside Plan discussed with: Patient Date of Service: Sep 04, 2024 Billing Provider: MICHAEL BRAGA MD Common Visit Codes: [id number] INP/OBS CARE(HIGH) MICHAEL BRAGA MD Sep 04, 2024 13:33
--- NOTE | 2024-09-04 17:39 | DVHSR ---
APPROVED REPORT EXAM: Two-dimensional and M-mode echocardiogram with Doppler and color Doppler. Blood Pressure: 126/69 mmHg INDICATION Syncope Surgery/Intervention Pacemaker: RISK FACTORS Height: 5'2", Weight: 144 DIMENSIONS LVDd (3.8-5.7cm)LA (2D)3.7 (1.9-4.0cm)Aortic Root (2.0-3.7cm) EF (%) 49.0 (55-70%)Rt. Atrium3.9 (1.9-4.0cm)Asc. Aorta cm IVSd (0.7-1.1cm)RV (D)3.6 (1.8-2.4cm) Mitral Valve MitralMitral Stenosis E wave0.88m/sMV Mean GR.mmHg A wave1.09m/sMV Peak GR.mmHg E/A ratio0.82D MVAcm2 DECEL [id number] 1/2 Timems Aortic Valve Aortic ValveAortic Stenosis V10.92m/Yaritza Mean GR.6mmHg V21.64m/Yaritza Peak GR.11mmHg AI P 1/2 Fjyq319.92ms Tricuspid Valve TR Velocity3.39m/s [id number] Other Information Quality : Technically LimitedRhythm : Technically limited study due to body habitus. Conclusion Technically difficult study. Difficult acoustic windows. Biatrial enlargement with concentric LVH. Sigmoid septum. Mild mitral annular calcification. EF of 50% with normal RV function. Mild TR. Trace aortic insufficiency. No pericardial effusion masses or vegetations. [id number] pulmonary hypertension.
[2024-09-05 01:00] VITALS: BP 106/63; PULSE 81; RESP 18; TEMP 97.5; O2SAT 93
[2024-09-05 05:00] VITALS: BP_SYST 0; BP_SYST 113; BP_DIAS 65; PULSE 78; RESP 18; TEMP 97.8; O2SAT 94
[2024-09-05 08:00] VITALS: PULSE 62; RESP 16; O2SAT 93
--- NOTE | 2024-09-05 09:16 | DVHPN2 ---
Reviewed: Care Plan, H&P, Labs, Medications, Previous Orders, Radiology Changes from previous H/P or p: No Changes Eyes: No Pain, No Vision change, No Conjunctivae inflammation, No Eyelid inflammation, No Other, No Redness ENT: No Ear pain, No Ear discharge, No Nose pain, No Nose discharge, No Nose congestion, No Mouth pain, No Mouth swelling, No Throat pain, No Throat swelling, No Other Cardiovascular: No Chest Pain, No Palpitations, No Orthopnea, No Paroxysmal Noc. Dyspnea, No Edema, No Lt Headedness, No Other Respiratory: No Cough, No Dry, No Shortness of breath, No SOB with excertion, No Wheezing, No Hemoptysis, No Pleuritic Pain, No Sputum, No Other Gastrointestinal: No Nausea, No Vomiting, No Abdominal Pain, No Diarrhea, No Constipation, No Melena, No Hematochezia, No Other Genitourinary: No Dysuria, No Frequency, No Incontinence, No Hematuria, No Retention, No Other Musculoskeletal: No other, No neck pain, No shoulder pain, No arm pain, No back pain, No hand pain, No leg pain, No foot pain Skin: No Rash, No Lesions, No Jaundice, No Bruising, No Other Objective Vitals Vital Signs Date Time Temp Pulse Resp B/P (MAP) Pulse Ox O2 Delivery O2 Flow Rate FiO2 09/05/24 08:00 16 93 Room Air* 0 21 09/05/24 05:00 97.8 78 113/65 (81) 97.8 0/ Intake/Output Intake and Output 09/05/24 07:00 Intake Total 1020 ml Balance 1020 ml Intake Oral 1020 ml # Voids 5 # Bowel Movements 2 Medications Current Medications Medications Dose Ordered Sig/Es Route Start Time Stop Time Status Last Admin Dose Admin Nitroglycerin 0.4 mg Q5MINP PRN SL 09/03/24 15:00 Morphine Sulfate 2 mg Q30M PRN IV 09/03/24 15:00 Ceftriaxone Sodium 50 ml @ 100 mls/hr DAILY@09 IV 09/04/24 09:00 09/04/24 09:00 100 MLS/HR Azithromycin 500 mg DAILY PO 09/04/24 10:00 09/04/24 10:49 500 MG Guaifenesin 200 mg Q4HP PRN PO 09/03/24 15:00 Albuterol 2.5 mg Q6HPRN PRN NEB 09/03/24 15:00 Cancel Furosemide 20 mg DAILY IV 09/04/24 10:00 Diagnostic Test (Pha) 1 strip IQ4HR 09/03/24 16:00 09/05/24 04:09 1 STRIP Insulin Human Regular IQ4HR SC 09/03/24 16:00 09/05/24 04:08 3 UNITS Dextrose 50 ml UD PRN IV 09/03/24 15:00 Levothyroxine Sodium 50 mcg QAM@0600 PO 09/04/24 06:00 09/05/24 06:32 50 MCG Laboratory Results Laboratory Tests 09/04/24 05:31 Urinalysis Test 09/03/24 16:30 Urine Color Light-yellow (Yellow) Urine Clarity Clear (Clear) Urine pH 6.5 (5.0-9.0) Urine Specific [place] 1.016 (1.001-1.035) Urine Protein Negative (Negative) Urine Ketones Negative (Negative) Urine Blood Negative /uL (Negative) Urine Nitrite Negative (Negative) Urine Bilirubin Negative (Negative) Urine Urobilinogen Normal mg/dL (Negative) Urine Leukocyte Esterase Negative /uL (Negative) Urine RBC <1 /hpf (0 - 3) Urine Microscopic WBC 1 /HPF (0-3) Urine Squamous Epithelial Cells Few /hpf (<5) Urine Bacteria None seen /hpf (None Seen) Urine Creatinine 51.66 mg/dL (30.0-125.0) Urine Protein/Creatinine Ratio 0.12 Urine Sodium 85 mmol/L (40-220) Urine Glucose 4+ mg/dL (Normal) H Urine Total Protein < 6.0 mg/dL (1-14) Labs and/or images reviewed: Labs reviewed by me, Image(s) reviewed by me Assessment/Plan Assessment/Plan Syncope, rule out cardiac etiology cardiology consult by Dr. Leo appreciated Rule out structural heart disease, ejection fraction 50% Presence of permanent pacemaker (Biotronik), pacemaker interrogated working well, cleared for discharge by Cardiology Hypertension Dyslipidemia Type 2 diabetes mellitus, uncontrolled (Hgb A1c 8.8%) BPH Thyroid disease at the bedside Plan discussed with: Patient Date of Service: Sep 05, 2024 Billing Provider: MICHAEL BRAGA MD Common Visit Codes: [id number] INP/OBS CARE(HIGH) MICHAEL BRAGA MD Sep 05, 2024 09:16
--- NOTE | 2024-09-05 09:20 | DVHDS2 ---
Discharge Summary Date of Admission Sep 03, 2024 at 14:51 Date of Discharge: Sep 05, 2024 Admitting Diagnosis Syncope Wounds: None Labs/Diagnostic Data: Laboratory Results Test 09/05/24 03:53 09/04/24 05:31 09/03/24 19:00 09/03/24 16:30 POC Glucose 175 mg/dl (70-106) White Blood Count 8.1 10^3/uL (4.4-10.8) Red Blood Count 4.02 10^6/uL (4.5-5.90) Hemoglobin 13.5 g/dL (13.5-17.5) Hematocrit 39.5 % (41.0-53.0) Mean Corpuscular Volume 98.3 fL (80.0-100.0) Mean Corpuscular Hemoglobin 33.7 pg (28.0-32.0) Mean Corpuscular Hemoglobin Concent 34.3 g/dL (32.0-36.0) Red Cell Distribution Width 13.1 % (11.8-14.3) Platelet Count 142 10^3/uL (140-450) Mean Platelet Volume 8.9 fL (6.9-10.8) Neutrophils (%) (Auto) 61.0 % (37.0-80.0) Lymphocytes (%) (Auto) 27.2 % (10.0-50.0) Monocytes (%) (Auto) 8.5 % (0.0-12.0) Eosinophils (%) (Auto) 2.7 % (0.0-7.0) Basophils (%) (Auto) 0.6 % (0.0-2.0) Neutrophils # (Auto) 5.0 10 ^3/uL (1.6-8.6) Lymphocytes # (Auto) 2.2 10 ^3/uL (0.4-5.4) Monocytes # (Auto) 0.7 10 ^3/uL (0-1.3) Eosinophils # (Auto) 0.2 10 ^3/uL (0-0.8) Basophils # (Auto) 0.1 10 ^3/uL (0-0.2) Nucleated Red Blood Cells 0.1 % Sodium Level 140 mmol/L (136-145) Potassium Level 4.4 mmol/L (3.5-5.1) Chloride Level 104 mmol/L (98-107) Carbon Dioxide Level 25 mmol/L (20-31) Anion Gap 11 (5-15) Blood Urea Nitrogen 21 mg/dL (9-23) Creatinine 1.40 mg/dL (0.700-1.30) Glomerular Filtration Rate Calc 49 mL/min (>90) BUN/Creatinine Ratio 15.0 (10.0-20.0) Serum Glucose 141 mg/dL (74-106) Calcium Level 9.3 mg/dL (8.7-10.4) Magnesium Level 1.9 mg/dL (1.6-2.6) Influenza Type A Antigen Negative (Negative) Influenza Type B Antigen Negative (Negative) SARS-CoV-2 Antigen (Rapid) Negative (NEGATIVE) Urine Color Light-yellow (Yellow) Urine Clarity Clear (Clear) Urine pH 6.5 (5.0-9.0) Urine Specific [place] 1.016 (1.001-1.035) Urine Protein Negative (Negative) Urine Ketones Negative (Negative) Urine Blood Negative /uL (Negative) Urine Nitrite Negative (Negative) Urine Bilirubin Negative (Negative) Urine Urobilinogen Normal mg/dL (Negative) Urine Leukocyte Esterase Negative /uL (Negative) Urine RBC <1 /hpf (0 - 3) Urine Microscopic WBC 1 /HPF (0-3) Urine Squamous Epithelial Cells Few /hpf (<5) Urine Bacteria None seen /hpf (None Seen) Urine Creatinine 51.66 mg/dL (30.0-125.0) Urine Protein/Creatinine Ratio 0.12 Urine Sodium 85 mmol/L (40-220) Urine Glucose 4+ mg/dL (Normal) Urine Total Protein < 6.0 mg/dL (1-14) Test 09/03/24 15:47 09/03/24 13:28 09/03/24 12:17 Troponin I High Sensitivity < 3 ng/L (</=54) Triglycerides Level 283 mg/dL (< 150) Cholesterol Level 149 mg/dL (< 200) LDL Cholesterol 78 mg/dL (< 100) HDL Cholesterol 40 mg/dL (40-59) Thyroid Stimulating Hormone (TSH) 2.11 uIU/mL (0.55-4.78) Hemoglobin A1c 8.8 % A1C (<5.7) B-Type Natriuretic Peptide 110.46 pg/mL (0-100) Other Laboratory Tests 09/04/24 05:31 Brief Hx & Hospital Course: 84-year-old male with a history of hypertension hyperlipidemia type 2 diabetes BPH hypothyroidism status post pacemaker had syncopal episode and admitted to the hospital for evaluation. CT head was negative carotid ultrasound negative echo 50 percent ejection fraction seen by cardiology Dr. Leo who ordered interrogation of the pacemaker pacemaker working well . patient asymptomatic stable vital signs at the time of discharge. Cleared by Cardiology for discharge discharged home. 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 Leo Operations or Procedures Carotid ultrasound Echocardiogram CT head Condition at Discharge: Fair Final Diagnosis/Problems List Syncope, rule out cardiac etiology cardiology consult by Dr. Leo appreciated Rule out structural heart disease, ejection fraction 50% Presence of permanent pacemaker (Biotronik), pacemaker interrogated working well, cleared for discharge by Cardiology Hypertension Dyslipidemia Type 2 diabetes mellitus, uncontrolled (Hgb A1c 8.8%) BPH Thyroid disease Discharge Disposition: Home Discharge Instruct/Medications Diet: Cardiac 2g Na,low cholest Activity: Light activity Follow Up/Referral: Resume all previous home medications Follow up with your primary Dr and Cardiologst Medications: None 39 (Time taken for discharge summary 39 minutes) Discharge Statement: "Patient was advised to return to the ER or call 911 if any headaches, dizziness, shortness of breath, chest pain, abdominal pain, bleeding, fevers, or worsening of medical condition. Patient was counseled about treatment plan, medications, possible side effects, patientverbalized understanding. All questions were answered to the best of my ability. This discharge took greater then 30 minutes in planning, reviewing documentation, counseling the patient, and discussing with other team members." ASSESSMENT ASSESSMENT Hospital Course Improved Assessment Syncope, rule out cardiac etiology cardiology consult by Dr. Leo appreciated Rule out structural heart disease, ejection fraction 50% Presence of permanent pacemaker (Biotronik), pacemaker interrogated working well, cleared for discharge by Cardiology Hypertension Dyslipidemia Type 2 diabetes mellitus, uncontrolled (Hgb A1c 8.8%) BPH Thyroid disease Date of Service: Sep 05, 2024 Billing Provider: MICHAEL BRAGA MD Common Visit Codes: [id number] DISCH DAY >30min MICHAEL BRAGA MD Sep 05, 2024 09:20
[2024-09-05 09:30] VITALS: BP 121/54; PULSE 72; RESP 18; TEMP 97.7; O2SAT 90
[2024-09-05 09:31] VITALS: BP 121/54; PULSE 72; RESP 18; TEMP 97.7; O2SAT 93
--- NOTE | 2024-09-05 10:27 | DVHPN2 ---
Consult Progress Note Subjective Patient reports: No new complaints Objective vital signs Vital Sign Date Time Temp Pulse Resp B/P (MAP) Pulse Ox O2 Delivery O2 Flow Rate FiO2 09/05/24 09:31 97.7 72 18 93 09/05/24 09:30 121/54 (76) 09/05/24 08:00 Room Air* 0 21 Total Intake and Output 09/04/24 09/04/24 09/05/24 15:00 23:00 07:00 Intake Total 520 ml 500 ml Balance 520 ml 500 ml medications Current Medications Medications Dose Ordered Sig/Es Route Start Time Stop Time Status Last Admin Dose Admin Nitroglycerin 0.4 mg Q5MINP PRN SL 09/03/24 15:00 Morphine Sulfate 2 mg Q30M PRN IV 09/03/24 15:00 Ceftriaxone Sodium 50 ml @ 100 mls/hr DAILY@09 IV 09/04/24 09:00 09/05/24 09:18 100 MLS/HR Azithromycin 500 mg DAILY PO 09/04/24 10:00 09/05/24 09:18 500 MG Guaifenesin 200 mg Q4HP PRN PO 09/03/24 15:00 Albuterol 2.5 mg Q6HPRN PRN NEB 09/03/24 15:00 Cancel Furosemide 20 mg DAILY IV 09/04/24 10:00 09/05/24 09:18 20 MG Diagnostic Test (Pha) 1 strip IQ4HR 09/03/24 16:00 09/05/24 08:00 1 STRIP Insulin Human Regular IQ4HR SC 09/03/24 16:00 09/05/24 09:24 9 UNITS Dextrose 50 ml UD PRN IV 09/03/24 15:00 Levothyroxine Sodium 50 mcg QAM@0600 PO 09/04/24 06:00 09/05/24 06:32 50 MCG Examination: CVS:Normal (Telemetry reviewed, consistent with AV paced rhythm at 65 beats per minute.) laboratory and microbiology Laboratory Tests 09/04/24 05:31 Test 09/04/24 05:31 Range/Units Serum Glucose 141 #H 74-106 mg/dL Problem List/Assessment/Plan Problem List/Assessment/Plan Assessment Syncope, rule out cardiac etiology Rule out structural heart disease Presence of permanent pacemaker (Biotronik) Hypertension Dyslipidemia Type 2 diabetes mellitus, uncontrolled (Hgb A1c 8.8%) BPH Thyroid disease Plan/Recommendation We will continue with the following plan/recommendations (Dr. Leo): * Transthoracic echocardiogram to evaluate cardiac function * Bilateral carotid ultrasound with no hemodynamically significant stenosis noted. * Orthostatic vital signs * Pacemaker interrogation * Close Cardiac surveillance Follow up device interrogation. Echo with normal EF 50%, no significant valvular structural abnormalities. Moderate pulmonary hypertension. Follow up interrogation noting no significant abnormalities or events noted. Bpm normal functioning. ESCOBAR greater than 4 years. No further cardiac workup indicated at this time. Stable from Cardiology standpoint. This medical document was created using an electronic medical record system with voice recognition software and computerized dictation system. Although this document has been carefully reviewed, there might still be some phonetic and typographical errors. Occasional wrong-word or ``sound-alike substitutions may have occurred due to the inherent limitations of voice recognition software. These areas are purely typographical due to imperfections of the software programs and do not reflect any compromise in the patient's medical care. Please read the chart carefully and recognize, using context, where these substitutions have occurred. Thank you for allowing me to participate in the management of this patient. The treatment plan was discussed with and agreed upon by patient/family including requesting consultants and ordering of imaging/procedures. Plan discussed with: Patient Date of Service: Sep 05, 2024 Billing Provider: TATYANA AVELAR Common Visit Codes: [id number] INP/OBS CARE(HIGH) TATYANA AVELAR Sep 05, 2024 10:27
--- NOTE | 2024-09-06 12:20 | ECG ---
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
== END 2024-09-05 11:17 | disposition home or self-care (01) | DRG 312 ==
LOC: EDSEX 11:41 → EDBD 11:41 → ER 11:47 → OVERFLOW 14:51 → TELE-CENTR 19:25
PROVIDERS: ADMIT Student in an Organized Health Care Education/Training Program; ATTEND Emergency Medicine
PROC: 4B02XSZ Measurement of Cardiac Pacemaker, External Approach (ICD-10-PCS; principal; 2024-09-05)
DX: I95.1 Orthostatic hypotension (principal); N17.0 Acute kidney failure with tubular necrosis; J18.9 Pneumonia, unspecified organism; I50.43 Acute on chronic combined systolic (congestive) and diastolic (congestive) heart failure; E11.65 Type 2 diabetes mellitus with hyperglycemia; N18.9 Chronic kidney disease, unspecified; E03.9 Hypothyroidism, unspecified; E78.5 Hyperlipidemia, unspecified; N40.0 Benign prostatic hyperplasia without lower urinary tract symptoms; I12.9 Hypertensive chronic kidney disease with stage 1 through stage 4 chronic kidney disease, or unspecified chronic kidney disease; E11.22 Type 2 diabetes mellitus with diabetic chronic kidney disease; Z20.822 Contact with and (suspected) exposure to COVID-19; I25.10 Atherosclerotic heart disease of native coronary artery without angina pectoris; I27.20 Pulmonary hypertension, unspecified; Z95.0 Presence of cardiac pacemaker
CPT/HCPCS: 36415; 70450; 71045; 80048; 80061; 81001; 82570; 82962; 83036; 83735; 83880; 84132; 84156; 84300; 84443; 84484; 85025; 87426; 87804; 93005; 93306; 93886; 96365; 96375; 99291; G0378; J1815

== ENCOUNTER 2024-10-05 08:42 | Outpatient (CLI) | payer OTHER ==
[~2024-10-05 08:42] MED LIST: EZET10TA24 PO; GLIM-38 PO; LEVO50TA7 PO; LISI-275 PO; METF-370 PO; METO-158 PO; PIO30T PO; SITA100T7 PO
[2024-10-05 09:30] LABS: Cholesterol 117 mg/dL (< 200); Triglycerides 120 mg/dL (< 150)
[2024-10-05 09:32] LABS: HDL Cholesterol 45 mg/dL (40-59)
[2024-10-05 09:46] LABS: Microalb/Creat Ratio, Urine 4.0
== END 2024-10-05 17:00 | disposition home or self-care (01) ==
LOC: LAB 08:42
PROVIDERS: ATTEND Internal Medicine
DX: E11.22 Type 2 diabetes mellitus with diabetic chronic kidney disease (principal); N18.31 Chronic kidney disease, stage 3a; E78.5 Hyperlipidemia, unspecified
CPT/HCPCS: 36415; 80061; 82043; 82306; 82570; 83036

== ENCOUNTER 2025-03-21 08:33 | Outpatient (CLI) | payer OTHER ==
[2025-03-21 09:29] LABS: Magnesium 1.7 mg/dL (1.6-2.6)
[2025-03-21 09:31] LABS: Creatine Kinase IFCC 48.0 U/L (46-171)
== END 2025-03-21 17:00 | disposition home or self-care (01) ==
LOC: LAB 08:33
PROVIDERS: ATTEND Internal Medicine
DX: I10 Essential (primary) hypertension (principal); E11.9 Type 2 diabetes mellitus without complications; E78.5 Hyperlipidemia, unspecified
CPT/HCPCS: 36415; 82550; 83735